=== PATIENT | female | born 1960 | race Caucasian/White ===

== ENCOUNTER → 2018-04-15 13:23 | Outpatient (CLI) | payer OTHER, SELFPAY | PROVIDERS: Family Provider Family Medicine; PCP Family Medicine; Visit Provider Family Medicine | DX: M81.0 Age-related osteoporosis without current pathological fracture (principal); Z78.0 Asymptomatic menopausal state | CPT/HCPCS: 77080 ==

== ENCOUNTER → 2018-06-04 07:49 | Outpatient (CLI) | payer OTHER, SELFPAY ==
[2018-06-04 08:57] LABS: Add Manual Diff / Slide Review NO; Basophils Percent Auto 1.1 % (0-2); Hemoglobin 13.2 g/dL (12.0-16.0); Lymphocytes Percent Auto 32.4 % (25-40); Mean Corpuscular HGB Conc 33.9 % (30-36); Mean Corpuscular Hemoglobin 32.1 PG (26-34); Mean Corpuscular Volume 94.8 fL (80-100); Monocytes Percent Auto 6.3 % (3-14); Neutrophils Absolute Auto 2800 /uL (1500-7000); Neutrophils Percent Auto 57.2 % (50-75); Platelet Count 302 X10^3/uL (150-400); Red Blood Cell Count 4.11 X10^6/uL (4.0-5.2); Red Cell Distribution Width 13.3 % (11.6-14.8); White Blood Cell Count 4.9 X10^3/uL (4.5-11.0)
[2018-06-04 09:03] LABS: Alanine Aminotransferase 30 IU/L (9-52); Albumin 4.5 g/dL (3.5-5.0); Albumin Globulin Ratio 1.5 (1.0-2.8); Alkaline Phosphatase 80 U/L (38-126); Aspartate Aminotransferase 22 IU/L (14-36); BUN Creatinine Ratio 22.9 (6-22); Bilirubin Total 0.5 mg/dL (0.2-1.3); Blood Urea Nitrogen 16 mg/dL (7-17); Calcium 9.3 mg/dL (8.4-10.2); Carbon Dioxide 26 mmol/L (22-32); Chloride 99 mmol/L (98-107); Cholesterol 210 mg/dL (140-199); Estimated Glomerular Filt Rate > 60.0 mL/min (>60); Glucose 95 mg/dL (70-100); HEMOLYSIS < 15 (0-50); Potassium 4.2 mmol/L (3.4-5.1); Sodium 136 mmol/L (137-145); Total Protein 7.5 g/dL (6.3-8.2); Triglycerides 70 mg/dL (35-150)
[2018-06-04 09:20] LABS: Vitamin D 25 Hydroxy (D3) 48.3 ng/mL (30.0-100.0)
[2018-06-04 09:30] LABS: HDL Cholesterol 131 mg/dL (40-60); LDL Cholesterol Calculated 65 mg/dL (<100)
[2018-06-04 09:34] LABS: Thyroid Stimulating Hormone 5.24 uIU/mL (0.47-4.68)
== END ==
PROVIDERS: PCP Family Medicine; Visit Provider Family Medicine
DX: B18.2 Chronic viral hepatitis C (principal); E78.5 Hyperlipidemia, unspecified; M81.0 Age-related osteoporosis without current pathological fracture; Z13.29 Encounter for screening for other suspected endocrine disorder
CPT/HCPCS: 36415; 80053; 80061; 82306; 84443; 85025

== ENCOUNTER → 2018-06-05 07:56 | Outpatient (CLI) | payer OTHER, SELFPAY ==
--- NOTE | 2018-06-05 07:57 | DI.MG.S_ITS ---
BILATERAL DIGITAL SCREENING MAMMOGRAM 3D/2D WITH CAD: 06/05/2018 CLINICAL: Routine screening. Comparison is made to exams dated: 09/05/2015 mammogram, 06/05/2009 mammogram, and 05/09/2008 mammogram - [facility]. The tissue of both breasts is heterogeneously dense. This may lower the sensitivity of mammography. Current study was also evaluated with a Computer Aided Detection (CAD) system. No significant masses, calcifications, or other findings are seen in either breast. Prominent blood vessels are identified bilaterally. There has been no significant interval change. IMPRESSION: NEGATIVE There is no mammographic evidence of malignancy. A 1 year screening mammogram is recommended. This exam was interpreted at Station ID: [id number]. NOTE: For mammograms, a report in lay terms will be sent to the patient. Approximately 15% of breast malignancies will not be visualized mammographically. In the management of a palpable breast mass, a negative mammogram must not discourage biopsy of a clinically suspicious lesion. Electronically Signed By: Dinesh Bartlett M.D. ecl/:06/07/2018 18:28:30 letter sent: Normal Exam ACR BI-RADS Category 1: Negative [id number]
== END ==
PROVIDERS: Family Provider Family Medicine; PCP Family Medicine; Visit Provider Family Medicine
DX: Z12.31 Encounter for screening mammogram for malignant neoplasm of breast (principal)
CPT/HCPCS: 77063; 77067

== ENCOUNTER → 2018-07-16 13:43 | Outpatient (CLI) | payer OTHER, SELFPAY ==
[2018-07-16 16:00] LABS: Thyroid Stimulating Hormone 3.56 uIU/mL (0.47-4.68)
== END ==
PROVIDERS: PCP Family Medicine; Visit Provider Family Medicine
DX: E03.9 Hypothyroidism, unspecified (principal)
CPT/HCPCS: 36415; 84443

== ENCOUNTER → 2019-01-18 11:24 | Outpatient (CLI) | payer OTHER, SELFPAY ==
[2019-01-18 12:50] LABS: Appearance Urine UA CLEAR; Bilirubin Urine UA NEGATIVE (NEGATIVE); Color Urine UA YELLOW; Glucose Urine UA NEGATIVE (Negative); Ketones Urine UA NEGATIVE (NEGATIVE); Leukocyte Esterase Urine UA 3+ (NEGATIVE); Nitrite Urine UA NEGATIVE (Negative); Occult Blood Urine UA 2+ (Negative); Protein Urine UA NEGATIVE (Negative); Urobilinogen Urine UA 0.2 E.U./dL (0.2)
[2019-01-18 12:56] LABS: RBC Urine 5-10/HPF (0-5/HPF)
[2019-01-18 12:57] LABS: Bacteria Urine Moderate (10-30); Culture Indicated Urine Specimen Cultured; Squamous Epithelial Cell Urine 1-5 /HPF (0-5/HPF); WBC Urine 5-10/HPF (0-5/HPF)
== END ==
PROVIDERS: Family Provider Family Medicine; PCP Family Medicine; Visit Provider Nurse Practitioner Family
DX: N39.0 Urinary tract infection, site not specified (principal); R30.0 Dysuria
CPT/HCPCS: 81001; 87077; 87086; 87186

== ENCOUNTER 2019-04-17 10:02 | Emergency (ER) | payer OTHER, SELFPAY ==
[2019-04-17 10:05] VITALS: BP 167/84; PULSE 92; RESP 21; TEMP 37.1; O2SAT 100; BMI 23.3
--- NOTE | 2019-04-17 10:29 | DI.RAD.S_ITS ---
PROCEDURE: XR CHEST 1V INDICATIONS: chest pain TECHNIQUE: One view of the chest was acquired. COMPARISON: [facility], , CHEST 2 VIEW, 08/17/2017, 3:25. FINDINGS: Surgical changes and devices: None. Lungs and pleura: Lungs are clear. No pleural effusions or pneumothorax. Mediastinum: Mediastinal contours appear normal. Heart size is normal. Bones and chest wall: No suspicious bony lesions. Overlying soft tissues appear unremarkable. IMPRESSION: Stable chest. No acute cardiopulmonary process is evident. Dictated by: Toribio Elam M.D. on 04/17/2019 at 10:07 Approved by: Toribio Elam M.D. on 04/17/2019 at 10:07
--- NOTE | 2019-04-17 10:32 | PC.NURSE ---
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
[2019-04-17 10:33] VITALS: BP 143/83; PULSE 85; RESP 18; O2SAT 100
[2019-04-17 10:37] LABS: Add Manual Diff / Slide Review NO; Basophils Absolute Auto 100 /uL (0-100); Basophils Percent Auto 1.3 % (0-2); Eosinophils Absolute Auto 200 /uL (0-450); Eosinophils Percent Auto 4.1 % (2-4); Hematocrit 38.2 % (36-46); Hemoglobin 13.3 g/dL (12.0-16.0); Lymphocytes Absolute Auto 1400 /uL (1100-4500); Lymphocytes Percent Auto 27.5 % (25-40); Mean Corpuscular HGB Conc 34.8 % (30-36); Mean Corpuscular Hemoglobin 32.7 PG (26-34); Mean Corpuscular Volume 94.2 fL (80-100); Monocytes Absolute Auto 400 /uL (0-900); Monocytes Percent Auto 7.8 % (3-14); Neutrophils Absolute Auto 3000 /uL (1500-7000); Neutrophils Percent Auto 59.3 % (50-75); Platelet Count 282 X10^3/uL (150-400); Red Blood Cell Count 4.06 X10^6/uL (4.0-5.2); Red Cell Distribution Width 13.5 % (11.6-14.8)
[2019-04-17 10:42] LABS: INR 0.9 (0.9-1.3); Prothrombin Time 10.5 SECONDS (10.1-12.7)
[2019-04-17 10:44] LABS: PTT Partial Thromboplastin Tim 30 SECONDS (26.4-36.2)
[2019-04-17 10:47] LABS: Alanine Aminotransferase 35 IU/L (<35); Albumin 4.6 g/dL (3.5-5.0); Albumin Globulin Ratio 1.6 (1.0-2.8); Alkaline Phosphatase 77 U/L (38-126); Aspartate Aminotransferase 35 IU/L (14-36); BUN Creatinine Ratio 22.9 (6-22); Bilirubin Total 0.5 mg/dL (0.2-1.3); Blood Urea Nitrogen 16 mg/dL (7-17); Calcium 9.5 mg/dL (8.4-10.2); Carbon Dioxide 29 mmol/L (22-32); Chloride 95 mmol/L (98-107); Creatine Kinase 125 U/L (30-135); Estimated Glomerular Filt Rate > 60.0 mL/min (>60); Globulin 2.9 g/dL (1.7-4.1); Glucose 95 mg/dL (80-110); HEMOLYSIS < 15 (0-50); Lipase 63 U/L (23-300); Potassium 4.3 mmol/L (3.4-5.1); Sodium 133 mmol/L (137-145); Total Protein 7.5 g/dL (6.3-8.2)
[2019-04-17 10:58] LABS: Troponin I < 0.012 ng/mL (0.01-0.034)
[2019-04-17 11:02] LABS: CKMB % Relative Index 2.2 % (1.5-5.0)
[2019-04-17 11:10] VITALS: BP 168/83; PULSE 76; RESP 14
[2019-04-17 11:30] VITALS: BP 157/95; PULSE 73; RESP 16; O2SAT 97
[2019-04-17 12:00] VITALS: BP 157/95; PULSE 72; RESP 16; O2SAT 96
--- NOTE | 2019-04-17 12:05 | ED.ARRPALP ---
HPI - Arrhythmia/Palpitations General Chief Complaint: Arrhythmia/Palpitations Stated Complaint: Palpitations,irregular hr Time Seen by Provider: 04/17/19 10:27 Source: patient Mode of arrival: Ambulatory Limitations: no limitations History of Present Illness HPI narrative: Patient comes emergency department complaining palpitations since starting Norvasc a couple days ago. 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 She states that she got lightheaded felt almost though she would faint, but did not have any chest pain or shortness of breath. She states another nurse at work took her pulse and found that it was irregular. 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 Patient states that the episode resolved in a few minutes on its own, and that since then she has had on and off sensation of a fluttery feeling in her upper chest. Patient denies any nausea or vomiting. She states that prior to starting the [facility], she had never had any symptoms like this. She has no known cardiac issues, and has taken over idea medications over the years for hypertension. Most recently, before the [facility], she was on couple of different Napoleon inhibitors, these have given her the side effect of a cough, and so her primary care physician, Dr. Turpin, had switched her to the [facility] to try to alleviate this. Patient states she has been off the Napoleon inhibitors for a couple of days now and is still coughing, but was told that the cough could last for up to a month. Patient denies any fevers or chills. The cough is not productive of any sputum. Patient denies any other complaints at this time. She states that with the episodes of fluttering, she did not feel lightheaded. Related Data Home Medications Medication Instructions Recorded Confirmed Strontium PO DAILY 01/18/19 04/14/19 acetaminophen 500 mg tablet 1,000 mg PO Q6H PRN 01/18/19 04/14/19 agelCAL PO BID 01/18/19 04/14/19 ibuprofen 200 mg tablet 800 mg PO QID PRN tab 01/18/19 04/14/19 Previous Rx's Medication Instructions Recorded montelukast 10 mg tablet 10 mg PO QDAY #90 tab 06/17/18 estradiol [Estrace] 1 gm VAGINAL SEE INSTRUCTIONS #1 07/09/18 tube ipratropium-albuterol [Combivent 120 puff INH BID #1 inh 07/09/18 Respimat] beclomethasone dipropionate [Qvar] 0.08 mg IH BID #1 ea 12/27/18 albuterol sulfate 90 mcg/actuation See Rx Instructions INHALATION 01/14/19 aerosol inhaler Q4-6H #1 each alprazolam 1 mg tablet 1 mg PO .hs PRN #45 tab 02/28/19 tramadol 50 mg tablet 50 mg PO Q8H PRN #60 tab 03/07/19 trazodone 50 mg tablet See Rx Instructions PO BEDTIME PRN 03/10/19 #180 tab eletriptan 40 mg tablet 40 mg PO SEE INSTRUCTIONS #12 tab 04/07/19 losartan 25 mg tablet 25 mg PO DAILY #90 tab 04/18/19 Allergies Allergy/AdvReac Type Severity Reaction Status Date / Time resveratrol [RESVERATROL] Allergy Severe HIVES AND Verified 04/17/19 10:17 SWELLING, RED WINE Sulfa (Sulfonamide Allergy Intermediate Verified 04/17/19 10:17 Antibiotics) [SULFA (SULFONAMIDE ANTIBIOTICS)] hydrochlorothiazide AdvReac Mild PALPITATION Verified 04/17/19 10:17 [HYDROCHLOROTHIAZIDE] S Review of Systems Review of Systems ROS Unobtainable: All systems reviewed & are unremarkable except as noted in HPI and below Constitutional Constitutional: Denies chills, Denies fatigue, Denies fever(s), Denies frequent falls, Denies lethargy and Denies weakness Eyes Eyes: Denies change in vision, Denies eye discharge, Denies irritation and Denies loss of vision ENT Ears, Nose, Mouth, and Throat: Denies change in voice, Denies dizziness, Denies neck pain, Denies sore throat and Denies throat swelling Cardiovascular Cardiovascular: Denies chest pain, Denies irregular heart rhythm, Denies lightheadedness, Denies palpitations, Denies dyspnea, Denies dyspnea on exertion and Denies orthopnea Respiratory Respiratory: Denies cough, Denies dyspnea, Denies dyspnea on exertion and Denies wheezing Gastrointestinal Gastrointestinal: Denies abdominal pain, Denies change in bowel habits, Denies diarrhea, Denies nausea and Denies vomiting Genitourinary Genitourinary: Denies hematuria, Denies flank pain, Denies urinary incontinence and Denies urinary urgency Musculoskeletal Musculoskeletal: Denies back pain, Denies muscle weakness, Denies neck pain, Denies numbness and Denies tingling Integumentary/Breasts Skin/Breast: Denies pruritus, Denies erythema, Denies rash and Denies wounds Neurologic Neurologic: Denies behavioral changes, Denies confusion, Denies dizziness, Denies frequent falls, Denies loss of vision, Denies numbness, Denies tingling and Denies weakness Psychiatric Psychiatric: Denies anxiety, Denies behavioral changes, Denies confusion, Denies depression, Denies homicidal ideation and Denies suicidal ideation Endocrine Endocrine: Denies fatigue, Denies flushing and Denies palpitations Hematologic/Lymphatic Hematologic/Lymphatic: Denies easy bruising Allergic/Immunologic Allergic/Immunologic: Denies urticaria, Denies throat swelling and Denies wheezing Patient History Medical History Asthma (Chronic 1968) Cervical spine disease (Chronic 1995) Fibromyalgia (Chronic 2012) Gastroparesis (Chronic 1999) Hepatitis C (Chronic 1995) Hypertension (Chronic 2001) Insomnia (Chronic 2011) Migraines (Chronic 1999) MRSA infection (Resolved 2009) Osteoporosis (Chronic 11/2015) Stress fracture of foot (Resolved 11/2015) Surgical History Anesthesia complication (Resolved) History of dilation and curettage (Resolved) Status post delivery (Resolved 1982) Status post delivery (Resolved 1984) Status post delivery (Resolved 1988) Status post delivery (Resolved 1991) Status post delivery (Resolved 1995) Family History Brother Age: 61 Hypertension Brother Age: 55 Hypertension Brother Age: 53 Hypertension Brother Age: 50 Hypertension Father Heart disease ID (myocardial infarction) Grandfather Stroke Grandmother Stroke Mother No problems noted. Grandfather AAA (abdominal aortic aneurysm) Grandmother No problems noted. Sister No problems noted. Family/Other Choking episode Social History Smoking Status: Never smoker Substance Use Type: does not use Exam Initial Vital Signs Initial Vital Signs: Vital Signs Temperature 98.7 F 04/17/19 10:05 Pulse Rate 92 H 04/17/19 10:05 Respiratory Rate 21 04/17/19 10:05 Blood Pressure 167/84 H 04/17/19 10:05 Pulse Oximetry 100 04/17/19 10:05 Const General: cooperative and well developed Nutritional Appearance: well nourished Orientation: alert, awake, oriented x3 and not confused HENMT Head: normocephalic and atraumatic Ears: external ears normal Nose: external nose normal and No nasal discharge Face and sinus: face symmetric and No dry mucous membranes Mouth: oral mucosae normal and moist mucous membranes Teeth and gingiva: dentition normal Eyes General: appearance normal, both eyes and all related structures Eyelids: eyelids normal Conjunctivae: conjunctivae normal Sclera: sclerae normal Pupils: PERRL EOM: EOM intact bilaterally Neck Neck: normal visual inspection, trachea midline, No lymphadenopathy, No midline deformity and No JVD Lymphatic: No lymphedema Chest Chest: normal inspection of the chest Resp Effort & Inspection: normal respiratory effort, able to speak in complete sentences, no respiratory distress and no use of accessory muscles Auscultation: clear to auscultation bilaterally, no rales, no rhonchi and no wheezes Cardio Rate: regular rate Rhythm: regular rhythm Heart Sounds: no click, no gallops, no murmurs and no rubs Pulses: normal peripheral pulses GI Inspection: non-distended Palpation: soft, no hepatosplenomegaly, No guarding, No pulsatile mass and No tender Back/Spine/Pelvis Back: No CVA tenderness Cervical Spine: cervical ROM normal and No pain with cervical ROM Thoracic/Lumbar Spine: thoracic and lumbar spine normal to inspection Skin General: no rashes or lesions noted, No jaundice and No petechiae Neuro General: alert, oriented x3, gait normal and no focal motor deficits Speech: speech normal Extrem General: full ROM, no clubbing, cyanosis or edema, no pedal edema and no calf tenderness Psych Appearance: well kempt Mental Status: mental status grossly normal Attitude: cooperative Thought Content: normal and suicidality Judgment: judgment good Course Course Course Narrative: Patient was worked up in the emergency department labs, EKG, and chest x-ray, all which were found to be unremarkable. Her monitor reading did not show any ectopy or other dysrhythmia whatsoever. I discussed with the patient that most likely, she will need to follow up with her doctor to get set up with an event monitor, should she continue to have symptoms. The patient states that at this time, she is determined to go off of the Norvasc and back on to her Napoleon inhibitors, as she feels that the Norvasc is what has started all this. She states she will take the night off work tonight an call her doctor to set up a follow-up appointment. Orders Ordered: ED Orders 04/17/19 10:13 EKG-12 Lead Stat 04/17/19 10:20 Complete Blood Count AUTO DIFF Stat Comprehensive Metabolic Panel Stat Lipase Stat Partial Thromboplastin Time Stat Prothrombin Time INR Stat Troponin & CK Cardiac Panel Stat 04/17/19 10:29 XR chest 1V Stat Vital Signs Vital signs: Vital Signs - 8 hr 04/17/19 10:05 04/17/19 10:33 04/17/19 11:10 Temperature 98.7 F Pulse Rate 92 H 85 76 Respiratory Rate 21 18 14 Blood Pressure 167/84 H Blood Pressure [Right Arm] 143/83 H 168/83 H Pulse Oximetry 100 100 04/17/19 11:30 04/17/19 12:00 Temperature Pulse Rate 73 72 Respiratory Rate 16 16 Blood Pressure Blood Pressure [Right Arm] 157/95 H 157/95 H Pulse Oximetry 97 96 MDM - Arrhythmia/Palpitations Medical Records Attestation: I reviewed the patient's medical records. Lab Data Attestation: I reviewed the patient's lab results. Result diagrams: 04/17/19 10:20 04/17/19 10:20 Labs: Lab Results 04/17/19 04/17/19 04/17/19 Range/Units 10:20 10:20 10:20 WBC 5.0 (4.5-11.0) X10^3/uL RBC 4.06 (4.0-5.2) X10^6/uL Hgb 13.3 (12.0-16.0) g/dL Hct 38.2 (36-46) % MCV 94.2 (80-100) fL MCH 32.7 (26-34) PG MCHC 34.8 (30-36) % RDW 13.5 (11.6-14.8) % Plt Count 282 (150-400) X10^3/uL Neut % (Auto) 59.3 (50-75) % Lymph % (Auto) 27.5 (25-40) % [place] % (Auto) 7.8 (3-14) % Eos % (Auto) 4.1 H (2-4) % Baso % (Auto) 1.3 (0-2) % Neut # (Auto) 3000 (0221-4458) /uL Lymph # (Auto) 1400 (9537-0731) /uL [place] # (Auto) 400 (0-900) /uL Eos # (Auto) 200 (0-450) /uL Baso # (Auto) 100 (0-100) /uL PT 10.5 (10.1-12.7) SECONDS INR 0.9 (0.9-1.3) APTT 30 (26.4-36.2) SECONDS Sodium 133 L (137-145) mmol/L Potassium 4.3 (3.4-5.1) mmol/L Chloride 95 L (98-107) mmol/L Carbon Dioxide 29 (22-32) mmol/L BUN 16 (7-17) mg/dL Creatinine 0.70 (0.52-1.04) mg/dL Estimated GFR > 60.0 (>60) mL/min BUN/Creatinine Ratio 22.9 H (6-22) Glucose 95 (80-110) mg/dL Calcium 9.5 (8.4-10.2) mg/dL Total Bilirubin 0.5 (0.2-1.3) mg/dL AST 35 (14-36) IU/L ALT 35 H (<35) IU/L Alkaline Phosphatase 77 (38-126) U/L Total Creatine Kinase 125 (30-135) U/L CK-MB (CK-2) 2.80 H (<2.37) ng/mL CK-MB (CK-2) Rel Index 2.2 (1.5-5.0) % Troponin I < 0.012 (0.01-0.034) ng/mL Total Protein 7.5 (6.3-8.2) g/dL Albumin 4.6 (3.5-5.0) g/dL Globulin 2.9 (1.7-4.1) g/dL Albumin/Globulin Ratio 1.6 (1.0-2.8) Lipase 63 (23-300) U/L Imaging Data Chest x-ray: Radiologist's impression: PROCEDURE: XR CHEST 1V INDICATIONS: chest pain TECHNIQUE: One view of the chest was acquired. COMPARISON: [facility], , CHEST 2 VIEW, 08/17/2017, 3:25. FINDINGS: Surgical changes and devices: None. Lungs and pleura: Lungs are clear. No pleural effusions or pneumothorax. Mediastinum: Mediastinal contours appear normal. Heart size is normal. Bones and chest wall: No suspicious bony lesions. Overlying soft tissues appear unremarkable. IMPRESSION: Stable chest. No acute cardiopulmonary process is evident. Dictated by: Toribio Elam M.D. on 04/17/2019 at 10:07 Approved by: Toribio Elam M.D. on 04/17/2019 at 10:07 ECG Data Attestation: I personally reviewed and interpreted this ECG as follows: Discharge Plan Departure Patient Disposition: Home Clinical Impression: Palpitations Discharge Date/Time: 04/17/19 12:00 Instructions: DI for Palpitations Activity Restrictions/Additional Instructions: Your labs look good. Your sodium is slightly decreased at 133, but the rest of your electrolytes look great. Your blood counts are normal. Your EKG shows normal sinus rhythm here in the emergency department, and your monitor rhythm has been sinus, as well, with a normal rate. You may go to work if you feel well enough, but if you have another episode of the palpitations, please consider at least brief monitoring at work. If you feel that the Norvasc is responsible for your symptoms, then it is probably better for you to go back on your NAPOLEON-inhibitor and decide with your doctor what would be a good alternative for treatment of your blood pressure. Please call Dr. Turpin's office 1st thing tomorrow morning to make an appointment to follow up to discuss your meds and event monitoring. If you are unable to get an appointment for within 1 week, please contact the emergency department tomorrow, and we will help facilitate this for you. Drink plenty of fluids and avoid stimulants, including caffeine, decongestants, and energy drinks, as much as possible. Prescriptions: No Action montelukast 10 mg tablet 10 mg PO QDAY Qty: 90 RF: 3 estradiol [Estrace] 0.01 % (0.1 mg/gram) cream 1 gm Vaginal SEE INSTRUCTIONS Qty: 1 RF: 6 ipratropium-albuterol [Combivent Respimat] 20-100 mcg/actuation mist 120 puff INH BID Qty: 1 RF: 4 Qvar 80 mcg/actuation aerosol 0.08 mg IH BID Qty: 1 RF: 2 Ventolin HFA 90 mcg/actuation HFA aerosol inhaler See Rx Instructions INHALATION Q4-6H Qty: 1 RF: 2 alprazolam 1 mg tablet 1 mg PO .hs PRN (Reason: anxiety) Qty: 45 RF: 2 tramadol 50 mg tablet 50 mg PO Q8H PRN (Reason: pain) Qty: 60 RF: 1 trazodone 50 mg tablet See Rx Instructions PO BEDTIME PRN (Reason: insomnia) Qty: 180 RF: 0 eletriptan [Relpax] 40 mg tablet 40 mg PO SEE INSTRUCTIONS Qty: 12 RF: 3 losartan 25 mg tablet 25 mg PO DAILY Qty: 90 RF: 0 agelCAL PO BID RF: 0 Strontium PO DAILY RF: 0 acetaminophen [Tylenol Extra Strength] 500 mg tablet 1,000 mg PO Q6H PRNRF: 0 ibuprofen 200 mg tablet 800 mg PO QID PRNRF: 0 Referrals: Juan Antonio Turpin MD [Primary Care Provider] -
== END 2019-04-17 12:00 | disposition home or self-care (01) ==
PROVIDERS: Emergency Provider Emergency Medicine; PCP Family Medicine
DX: R00.2 Palpitations (principal); R07.9 Chest pain, unspecified
CPT/HCPCS: 36415; 71045; 80053; 82550; 82553; 83690; 84484; 85025; 85610; 85730; 93005; 93010; 99283; 99285

== ENCOUNTER → 2019-06-23 14:42 | Outpatient (CLI) | payer OTHER, SELFPAY ==
--- NOTE | 2019-06-23 14:43 | DI.RAD.S_ITS ---
PROCEDURE: XR FOOT RT MIN 3V INDICATIONS: Toe pain TECHNIQUE: 3 views of the foot were acquired. COMPARISON: [facility], , FOOT 3V RIGHT, 11/02/2015, 9:14. FINDINGS: Bones: Mildly displaced oblique fracture extending through the mid shaft of the fourth proximal phalanx which has a subacute appearance.. Soft tissues: No tibiotalar joint effusion. Achilles tendon appears normal. IMPRESSION: Subacute appearing fracture involving the midshaft of the fourth proximal phalanx. Dictated by: Maury Espinoza LOCATED [facility]IN [facility] Interpreted: Katherine Pena MD on 06/23/2019 at 17:05 Approved by: Katherine Pena M.D. on 06/23/2019 at 17:30
== END ==
PROVIDERS: PCP Family Medicine; Visit Provider Family Medicine
DX: M79.674 Pain in right toe(s) (principal); S92.511A Displaced fracture of proximal phalanx of right lesser toe(s), initial encounter for closed fracture; X58.XXXA Exposure to other specified factors, initial encounter
CPT/HCPCS: 73630

== ENCOUNTER → 2019-07-01 12:24 | Outpatient (CLI) | payer OTHER, SELFPAY ==
--- NOTE | 2019-07-01 | DI.MG.S_ITS ---
BILATERAL DIGITAL SCREENING MAMMOGRAM 3D/2D WITH CAD: 07/01/2019 CLINICAL: Routine screening. Comparison is made to exams dated: 06/05/2018 mammogram, 09/05/2015 mammogram, and 06/05/2009 mammogram - [facility]. The tissue of both breasts is heterogeneously dense. This may lower the sensitivity of mammography. Current study was also evaluated with a Computer Aided Detection (CAD) system. No significant masses, calcifications, or other findings are seen in either breast. There has been no significant interval change. IMPRESSION: NEGATIVE There is no mammographic evidence of malignancy. A 1 year screening mammogram is recommended. This exam was interpreted at Station ID: [id number]. NOTE: For mammograms, a report in lay terms will be sent to the patient. Approximately 15% of breast malignancies will not be visualized mammographically. In the management of a palpable breast mass, a negative mammogram must not discourage biopsy of a clinically suspicious lesion. Electronically Signed By: Tam kline/alicja:07/01/2019 16:15:33 letter sent: Normal Exam ACR BI-RADS Category 1: Negative [id number]
== END ==
PROVIDERS: PCP Family Medicine; Visit Provider Family Medicine
DX: Z12.31 Encounter for screening mammogram for malignant neoplasm of breast (principal); M81.0 Age-related osteoporosis without current pathological fracture; Z78.0 Asymptomatic menopausal state
CPT/HCPCS: 77063; 77067; 77080

== ENCOUNTER → 2019-12-02 08:44 | Outpatient (CLI) | payer OTHER, SELFPAY ==
[2019-12-02 11:00] LABS: Alanine Aminotransferase 33 IU/L (<35); Albumin 4.3 g/dL (3.5-5.0); Albumin Globulin Ratio 1.6 (1.0-2.8); Alkaline Phosphatase 80 U/L (38-126); Aspartate Aminotransferase 28 IU/L (14-36); BUN Creatinine Ratio 17.1 (6-22); Bilirubin Total 0.7 mg/dL (0.2-1.3); Blood Urea Nitrogen 13 mg/dL (7-17); Calcium 9.6 mg/dL (8.4-10.2); Carbon Dioxide 29 mmol/L (22-32); Chloride 99 mmol/L (98-107); Cholesterol 221 mg/dL (140-199); Estimated Glomerular Filt Rate > 60.0 mL/min (>60); Globulin 2.7 g/dL (1.7-4.1); Glucose 94 mg/dL (80-110); HEMOLYSIS < 15 (0-50); Potassium 4.6 mmol/L (3.4-5.1); Sodium 132 mmol/L (137-145); Triglycerides 81 mg/dL (35-150)
[2019-12-02 11:12] LABS: HDL Cholesterol 123 mg/dL (40-60); LDL Cholesterol Calculated 82 mg/dL (<100)
== END ==
PROVIDERS: PCP Family Medicine; Referring Provider Family Medicine; Visit Provider Family Medicine
DX: I10 Essential (primary) hypertension (principal)
CPT/HCPCS: 36415; 80053; 80061

== ENCOUNTER → 2019-12-08 14:49 | Outpatient (CLI) | payer OTHER, SELFPAY ==
[2019-12-09 13:09] LABS: COVID19 Sendout Not Detected (Not Detected)
== END ==
PROVIDERS: PCP Family Medicine; Visit Provider Physician Assistant
DX: R50.9 Fever, unspecified (principal)
CPT/HCPCS: 87635

== ENCOUNTER → 2020-05-17 10:33 | Outpatient (CLI) | payer OTHER, SELFPAY ==
[2020-05-17 11:26] LABS: BUN Creatinine Ratio 28.3 (6-22); Blood Urea Nitrogen 17 mg/dL (7-17); Calcium 9.5 mg/dL (8.4-10.2); Carbon Dioxide 33 mmol/L (22-32); Chloride 89 mmol/L (98-107); Estimated Glomerular Filt Rate > 60.0 mL/min (>60); Glucose 88 mg/dL (80-110); HEMOLYSIS < 15 (0-50); Potassium 3.9 mmol/L (3.4-5.1); Sodium 125 mmol/L (137-145)
== END ==
PROVIDERS: PCP Family Medicine; Referring Provider Family Medicine; Visit Provider Family Medicine
DX: I10 Essential (primary) hypertension (principal)
CPT/HCPCS: 80048

== ENCOUNTER → 2020-06-11 11:18 | Outpatient (CLI) | payer OTHER, SELFPAY ==
[2020-06-11 13:03] LABS: BUN Creatinine Ratio 16.4 (6-22); Blood Urea Nitrogen 12 mg/dL (7-17); Calcium 9.6 mg/dL (8.4-10.2); Carbon Dioxide 30 mmol/L (22-32); Chloride 98 mmol/L (98-107); Estimated Glomerular Filt Rate > 60.0 mL/min (>60); Glucose 107 mg/dL (80-110); HEMOLYSIS < 15 (0-50); Potassium 4.1 mmol/L (3.4-5.1); Sodium 131 mmol/L (137-145)
== END ==
PROVIDERS: PCP Family Medicine; Referring Provider Family Medicine; Visit Provider Family Medicine
DX: I10 Essential (primary) hypertension (principal)
CPT/HCPCS: 36415; 80048

== ENCOUNTER 2020-06-18 13:48 | Emergency (ER) | payer OTHER, SELFPAY ==
[2020-06-18 13:52] VITALS: BP 167/82; PULSE 84; RESP 16; TEMP 36.2; O2SAT 98
--- NOTE | 2020-06-18 13:57 | DI.RAD.S_ITS ---
PROCEDURE: XR SHOULDER LT MIN 2V INDICATIONS: fall w/ bilateral rib pain and left shoulder pain TECHNIQUE: 3 views of the shoulder were acquired. COMPARISON: None. FINDINGS: Bones: No fractures or dislocations. No suspicious bony lesions. Visualized ribs appear intact. Mild degenerative change appreciated. Soft tissues: No suspicious soft tissue calcifications. IMPRESSION: No left shoulder fracture or dislocation. Dictated by: Paul Lo M.D. on 06/18/2020 at 13:22 Approved by: Paul Lo M.D. on 06/18/2020 at 13:24
--- NOTE | 2020-06-18 13:57 | DI.RAD.S_ITS ---
PROCEDURE: XR RIBS BI MIN 4V W CXR1V INDICATIONS: fall w/ bilateral rib pain and left shoulder pain TECHNIQUE: 2 views of the bilateral ribs were acquired, along with a single view chest. COMPARISON: [facility], CR, XR SHOULDER LT MIN 2V, 06/18/2020, 14:07. [facility], CR, XR CHEST 1V, 04/17/2019, 10:32. FINDINGS: Surgical changes and devices: None. Bones and chest wall: A marker is placed upon the area of clinical concern on both sides. Within this region, no displaced rib fracture or other significant rib abnormality can be seen. No rib fractures are seen elsewhere. No suspicious bony lesions. Overlying soft tissues appear unremarkable. Age-appropriate bony degenerative changes are seen. Mild dextroconvex scoliotic curvature is seen. Lungs and pleura: No pleural effusions or pneumothorax. Lungs appear clear. Mediastinum: Mediastinal contours appear normal. Heart size is normal. A moderate hiatal hernia is seen, with an air-fluid level. IMPRESSION: No displaced rib fractures can be seen. No pneumothorax. Hiatal hernia noted. Dictated by: Heber Calzada M.D. on 06/18/2020 at 13:29 Approved by: Heber Calzada M.D. on 06/18/2020 at 13:31
[2020-06-18 16:48] VITALS: BP 139/77; PULSE 71; RESP 16; O2SAT 99
--- NOTE | 2020-06-18 17:17 | ED.FALL ---
HPI - Fall General Chief Complaint: Fall Stated Complaint: FELL DOWN STAIRS, PROBLEMS BREATHING Time Seen by Provider: 06/18/20 17:17 Source: patient and family () Mode of arrival: Ambulatory Limitations: no limitations History of Present Illness HPI Narrative: This is a 59-year-old female who comes to the emergency department after a fall down the stairs. Patient states that she was going down the stairs when her foot sort of slipped forward and she fell landing on her back and buttocks. Patient states she sort of bumped down the stairs she states since then she has had some pain in her chest on both sides, some left shoulder pain and had difficulty taking a deep breath. She denies having her head she denies any neck pain. She denies any numbness, tingling or weakness. No loss of consciousness. She does not take any aspirin or other blood thinners. She took tramadol and ibuprofen at home which was helpful. She states she also had a Valium which she has taken which was helpful for muscle relaxation. This occurred 2-3 days prior to arrival. She has not had any new neurologic changes. Patient has become more uncomfortable as time has progressed. She does not feel short of breath she has not had any vomiting. No loss of bowel or bladder control. She states she does have a bruise on her buttock. Related Data Home Medications Medication Instructions Recorded Confirmed Strontium PO DAILY 01/18/19 05/21/20 acetaminophen 500 mg tablet 1,000 mg PO Q6H PRN 01/18/19 05/21/20 agelCAL PO BID 01/18/19 05/21/20 ibuprofen 200 mg tablet 800 mg PO QID PRN tab 01/18/19 05/21/20 Previous Rx's Medication Instructions Recorded montelukast 10 mg tablet 10 mg PO QDAY #90 tab 06/25/19 estradiol 1 gram VAGINAL SEE INSTRUCTIONS #1 11/11/19 tube losartan 50 mg tablet 50 mg PO BID #180 tab 01/19/20 fluconazole 150 mg tablet 150 mg PO Q3D #6 tab 04/23/20 nystatin 100,000 unit/mL oral 5 ml PO TID 5 Days #75 ml 04/23/20 suspension alprazolam 1 mg tablet 0.5 mg PO BEDTIME PRN #60 tab 05/15/20 eletriptan 40 mg tablet See Rx Instructions .ROUTE 05/15/20 .COMPLEX #12 tab tramadol 50 mg tablet See Rx Instructions .ROUTE 05/15/20 .COMPLEX #60 tablet albuterol sulfate 90 mcg/actuation 2 puff INHALATION Q6H PRN #6.7 g 05/21/20 aerosol inhaler budesonide 180 mcg/actuation 2 inh INHALATION BID #1 ea 05/21/20 breath activated powder inhaler clotrimazole-betamethasone 1 1 applic TOPICAL BID 14 Days #45 g 05/21/20 %-0.05 % topical cream trazodone 50 mg tablet See Rx Instructions PO BEDTIME PRN 05/21/20 #90 tab diazepam [Valium] 5 mg PO TID PRN #10 tab 06/18/20 Allergies Allergy/AdvReac Type Severity Reaction Status Date / Time resveratrol [RESVERATROL] Allergy Severe HIVES AND Verified 06/18/20 13:57 SWELLING, RED WINE Sulfa (Sulfonamide Allergy Intermediate Verified 06/18/20 13:57 Antibiotics) [SULFA (SULFONAMIDE ANTIBIOTICS)] thimerosal Allergy Unknown Verified 06/18/20 13:57 amlodipine Allergy heart Verified 06/18/20 13:57 palpitations enalapril AdvReac cough Verified 06/18/20 13:57 Review of Systems Review of Systems ROS Unobtainable: All systems reviewed & are unremarkable except as noted in HPI and below Patient History Medical History Asthma (1968) Cervical spine disease (1995) Fibromyalgia (2012) Gastroparesis (1999) Hepatitis C (1995) Hypertension (2001) Insomnia (2011) Migraines (1999) MRSA infection (2009) Osteoporosis (11/2015) Stress fracture of foot (11/2015) Surgical History Anesthesia complication History of dilation and curettage Status post delivery (1982) Status post delivery (1984) Status post delivery (1988) Status post delivery (1991) Status post delivery (1995) Family History Brother Age: 62 Hypertension Brother Age: 56 Hypertension Brother Age: 54 Hypertension Brother Age: 51 Hypertension Father Heart disease NE (myocardial infarction) Grandfather Stroke Grandmother Stroke Mother No problems noted. Grandfather AAA (abdominal aortic aneurysm) Grandmother No problems noted. Sister No problems noted. Family/Other Choking episode Social History Smoking Status: Never smoker Smoking Status: Never smoker alcohol intake frequency: 0-2 drinks per day Substance Use Type: does not use Exam Narrative Exam Narrative: GEN: Patient appears in mild distress. HEAD: No evidence of trauma, no raccoon/Salazar sign. NECK: Nontender, painless range of motion, trachea midline Negative for Nexus criteria, there is no mid line tenderness, distracting injury, altered mental status, neuro deficit, recent EtOH. EYES: PERRLA, EOMI ENT: External inspection normal, trachea is midline, TM's are normal no hemotypanum, Nares are clear, no septal hematoma, no dental or oral injury, airway is normal and with normal occlusion, No bony tenderness RESP: Chest has mild tenderness bilaterally and has symmetric movement, no ecchymosis, breath sounds are normal no crackles, wheezes or rales, no flail chest, no accessory muscle use. CVS: Heart sounds are normal, no murmur noted, No JVD. ABG/GI: Nontender, soft, normal bowel sounds, no distention, no organomegaly, pelvic rock is negative NEURO: Oriented AOx3, neuro is grossly intact, sensation and motor is normal all 4 extremities moving, cranial nerves II through XII are intact, GCS is 15 PSYCH: Normal mood and affect SKIN: Intact, warm and dry, no crepitus and without decubitus patient has a of ecchymosis that is approximately a cm in size on her left buttock. No hematoma appreciated. BACK: No CVA tenderness, no vertebral tenderness, no step-off's, no crepitus. Patient does have some muscle tightness in the neck. EXT: Atraumatic, patient does have tenderness of the left shoulder particularly the AC joint. No warmth, no erythema. She does have some decreased range of motion with abduction, none with adduction, patient has decreased flexion/extension. Hips are nontender, no pedal edema, normal color and temperature, normal range of motion of extremities with normal tendon exam, 2+ pulses in all four extremities Initial Vital Signs Initial Vital Signs: Vital Signs Temperature 97.2 F L 06/18/20 13:52 Pulse Rate 84 06/18/20 13:52 Respiratory Rate 16 06/18/20 13:52 Blood Pressure 167/82 H 06/18/20 13:52 Pulse Oximetry 98 06/18/20 13:52 Scores GCS [place] coma scale eye opening: Spontaneous [place] coma scale verbal response: Orientated [place] coma scale motor response: Obey commands David coma scale total score: 15 Course Orders Ordered: ED Orders 06/18/20 13:57 XR ribs BI min 4V w CXR1V Stat XR shoulder LT min 2V Stat Vital Signs Vital signs: Vital Signs - 8 hr 06/18/20 13:52 06/18/20 16:48 Temperature 97.2 F L Pulse Rate 84 71 Respiratory Rate 16 16 Blood Pressure 167/82 H 139/77 Pulse Oximetry 98 99 MDM - Fall Imaging Data Chest x-ray: Radiologist's Impression: [address] [id number] ReportSigned Patient: Bertha Clarke MMR#: [id number]: [id number]:[id number]/Sex: 59 / FDate of Service: 06/18/20Loc: EDAccession Number: [id number] Procedure: XR ribs BI min 4V w CXR1V Ordering Provider: Carol Berger D.O. PROCEDURE: XR RIBS BI MIN 4V W CXR1V INDICATIONS: fall w/ bilateral rib pain and left shoulder pain TECHNIQUE: 2 views of the bilateral ribs were acquired, along with a single view chest. COMPARISON: [facility], CR, XR SHOULDER LT MIN 2V, 06/18/2020, 14:07. [facility], CR, XR CHEST 1V, 04/17/2019, 10:32. FINDINGS: Surgical changes and devices: None. Bones and chest wall: A marker is placed upon the area of clinical concern on both sides. Within this region, no displaced rib fracture or other significant rib abnormality can be seen. No rib fractures are seen elsewhere. No suspicious bony lesions. Overlying soft tissues appear unremarkable. Age-appropriate bony degenerative changes are seen. Mild dextroconvex scoliotic curvature is seen. Lungs and pleura: No pleural effusions or pneumothorax. Lungs appear clear. Mediastinum: Mediastinal contours appear normal. Heart size is normal. A moderate hiatal hernia is seen, with an air-fluid level. IMPRESSION: No displaced rib fractures can be seen. No pneumothorax. Hiatal hernia noted. Dictated by: Heber Calzada M.D. on 06/18/2020 at 13:29 Approved by: Heber Calzada M.D. on 06/18/2020 at 13:31 Extremity x-ray #1: Radiologist's Impression: [address] [id number] ReportSigned Patient: Bertha Clarke MMR#: [id number]: [id number]:[id number]/Sex: 59 / FDate of Service: 06/18/20Loc: EDAccession Number: [id number] Procedure: XR shoulder LT min 2V Ordering Provider: Carol Berger D.O. PROCEDURE: XR SHOULDER LT MIN 2V INDICATIONS: fall w/ bilateral rib pain and left shoulder pain TECHNIQUE: 3 views of the shoulder were acquired. COMPARISON: None. FINDINGS: Bones: No fractures or dislocations. No suspicious bony lesions. Visualized ribs appear intact. Mild degenerative change appreciated. Soft tissues: No suspicious soft tissue calcifications. IMPRESSION: No left shoulder fracture or dislocation. Dictated by: Paul Lo M.D. on 06/18/2020 at 13:22 Approved by: Paul Lo M.D. on 06/18/2020 at 13:24 [facility] Narrative Medical decision making narrative: Patient comes in with complaint of fall down the stairs. Patient is requesting prescription for diazepam. She states that her home medications were helpful for pain but she feels very tight with her muscles. X-ray imaging does not show any acute rib fractures. Patient does not have specific point tenderness it makes me suspect she has a rib fracture at this time. She does potentially have some injury to her shoulder. There is no fracture noted on imaging but she does have some difficulty with full flexion and abduction. Patient has follow-up on with her primary care physician was recommended discussed with them as she may need some further evaluation. Recommended short-term pain control and time to see if her symptoms improve. We did discuss that there was potential for some internal derangement. Discharge Plan Departure Patient Disposition: Home Clinical Impression: Back pain, Left shoulder pain, Fall Activity Restrictions/Additional Instructions: Follow-up with Dr. Sotomayor at your appointment on . Discussed your discomfort particularly your left shoulder today. Continue your home medications as prescribed for pain. You may also take Valium tablet every 8 hours as needed for muscle relaxation. This medication can make you sleepy do not drive, perform hazardous activities or make any major decisions while taking it. Prescription to [facility] in [place]. Return to the ER for fevers, lightheadedness or passing out, severe headaches, new weakness, numbness or loss of sensation in your extremities, loss of bowel or bladder control, new shortness of breath, worsening chest pain, persistent vomiting or other new or concerning symptoms. Prescriptions: New diazepam [Valium] 5 mg tablet 5 mg PO TID PRN (Reason: muscle spasm) Qty: 10 RF: 0 No Action nystatin 100,000 unit/mL suspension 5 ml PO TID 5 Days Qty: 75 RF: 1 fluconazole 150 mg tablet 150 mg PO Q3D Qty: 6 RF: 0 eletriptan 40 mg tablet See Rx Instructions .ROUTE .COMPLEX Qty: 12 RF: 2 tramadol 50 mg tablet See Rx Instructions .ROUTE .COMPLEX Qty: 60 RF: 3 alprazolam 1 mg tablet 0.5 mg PO BEDTIME PRN (Reason: insomnia) Qty: 60 RF: 2 agelCAL PO BID RF: 0 Strontium PO DAILY RF: 0 acetaminophen [Tylenol Extra Strength] 500 mg tablet 1,000 mg PO Q6H PRNRF: 0 ibuprofen 200 mg tablet 800 mg PO QID PRNRF: 0 estradiol [Estrace] 0.01 % (0.1 mg/gram) cream 1 gram Vaginal SEE INSTRUCTIONS Qty: 1 RF: 6 albuterol sulfate 90 mcg/actuation HFA aerosol inhaler 2 puff inhalation Q6H PRN (Reason: shortness of breath or wheezing) Qty: 6.7 RF: 8 Pulmicort Flexhaler 180 mcg/actuation aerosol powdr breath activated 2 inh inhalation BID Qty: 1 RF: 8 trazodone 50 mg tablet See Rx Instructions PO BEDTIME PRN (Reason: insomnia) Qty: 90 RF: 8 clotrimazole-betamethasone 1-0.05 % cream 1 applic topical BID 14 Days Qty: 45 RF: 3 montelukast 10 mg tablet 10 mg PO QDAY Qty: 90 RF: 3 losartan 50 mg tablet 50 mg PO BID Qty: 180 RF: 3 Referrals: Eladio Sotomayor MD [Primary Care Provider] - Stand Alone Forms: Work Release Note
== END 2020-06-18 17:53 | disposition home or self-care (01) ==
PROVIDERS: Emergency Provider Emergency Medicine; PCP Internal Medicine
DX: M54.9 Dorsalgia, unspecified (principal); R07.9 Chest pain, unspecified; M25.512 Pain in left shoulder; R07.81 Pleurodynia; W10.9XXA Fall (on) (from) unspecified stairs and steps, initial encounter
CPT/HCPCS: 71111; 73030; 99283; 99284

== ENCOUNTER → 2020-06-26 17:40 | Outpatient (CLI) | payer OTHER, SELFPAY ==
--- NOTE | 2020-06-26 17:42 | DI.MRI.S_ITS ---
PROCEDURE: MR SHOULDER LT WO CON INDICATIONS: left shoulder injury/weakness TECHNIQUE: Noncontrast oblique coronal T2 fast spin echo with fat saturation, oblique sagittal T1 spin echo and T2 fast spin echo with fat saturation, axial T1 spin echo and T2 fast spin echo with fat saturation through the shoulder. COMPARISON: [facility], CR, XR SHOULDER LT MIN 2V, 06/18/2020, 14:07. FINDINGS: Image quality: Excellent. Rotator cuff: There is mild T2 signal elevation within the anterior, mid, and posterior supraspinatus, as well as the anterior and mid infraspinatus tendons at the humeral insertion sites, indicating tendinopathy. There is superimposed moderate grade intrasubstance tearing of the anterior infraspinatus and posterior supraspinatus tendons at the humeral insertion sites. There is high-grade tearing of the anterior supraspinatus tendon at the humeral insertion site. Subscapularis and teres minor tendons are intact. No rotator cuff atrophy. Bones and bursae: No bone marrow contusions or fractures. Subchondral cysts within the mid posterior labrum. Moderate acromioclavicular joint degeneration. The acromion demonstrates conventional anatomy, without an os acromiale. A small amount of subacromial-subdeltoid or subcoracoid bursal fluid is present. Capsule and soft tissues: High T2 signal intensity traverses the posterior labrum. The long head of the biceps tendon demonstrates normal location and morphology. The rotator interval appears normal, without fibrosis. The coracohumeral ligament is normal in thickness. IMPRESSION: 1. Supraspinatus and infraspinatus tendinopathy with superimposed high-grade tearing of the anterior supraspinatus, and moderate grade tearing of the posterior supraspinatus/anterior infraspinatus. No full-thickness rotator cuff tear. 2. Acromioclavicular joint osteoarthritis. 3. Subacromial bursitis. 4. Findings suggestive of posterior labral tearing. Dictated by: Rizwana Bee M.D. on 06/27/2020 at 9:09 Approved by: Rizwana Bee M.D. on 06/27/2020 at 9:14
== END ==
PROVIDERS: PCP Registered Nurse; Referring Provider Registered Nurse; Visit Provider Registered Nurse
DX: S46.012A Strain of muscle(s) and tendon(s) of the rotator cuff of left shoulder, initial encounter; M75.52 Bursitis of left shoulder; M19.012 Primary osteoarthritis, left shoulder; R29.898 Other symptoms and signs involving the musculoskeletal system; X58.XXXA Exposure to other specified factors, initial encounter
CPT/HCPCS: 73221

== ENCOUNTER → 2020-12-03 08:48 | Outpatient (CLI) | payer OTHER, SELFPAY ==
[2020-12-03 09:54] LABS: Add Manual Diff / Slide Review NO; Basophils Absolute Auto 0 /uL (0-100); Basophils Percent Auto 1.5 % (0-2); Eosinophils Absolute Auto 100 /uL (0-450); Eosinophils Percent Auto 1.8 % (2-4); Hematocrit 31.4 % (36-46); Hemoglobin 10.3 g/dL (12.0-16.0); Lymphocytes Absolute Auto 900 /uL (1100-4500); Lymphocytes Percent Auto 29.4 % (25-40); Mean Corpuscular HGB Conc 32.7 % (30-36); Mean Corpuscular Hemoglobin 27.3 PG (26-34); Mean Corpuscular Volume 83.5 fL (80-100); Monocytes Absolute Auto 300 /uL (0-900); Monocytes Percent Auto 9.3 % (3-14); Neutrophils Absolute Auto 1800 /uL (1500-7000); Platelet Count 354 X10^3/uL (150-400); Red Blood Cell Count 3.76 X10^6/uL (4.0-5.2); Red Cell Distribution Width 19.3 % (11.6-14.8); White Blood Cell Count 3.2 X10^3/uL (4.5-11.0)
[2020-12-03 10:06] LABS: Alanine Aminotransferase 26 IU/L (<35); Albumin Globulin Ratio 1.6 (1.0-2.8); Alkaline Phosphatase 66 U/L (38-126); Aspartate Aminotransferase 22 IU/L (14-36); BUN Creatinine Ratio 14.5 (6-22); Bilirubin Total 0.1 mg/dL (0.2-1.3); Blood Urea Nitrogen 10 mg/dL (7-17); Calcium 9.4 mg/dL (8.4-10.2); Carbon Dioxide 27 mmol/L (22-32); Chloride 94 mmol/L (98-107); Estimated Glomerular Filt Rate > 60.0 mL/min (>60); Globulin 2.5 g/dL (1.7-4.1); Glucose 105 mg/dL (80-110); HEMOLYSIS < 15 (0-50); Potassium 4.3 mmol/L (3.4-5.1); Sodium 128 mmol/L (137-145); Total Protein 6.5 g/dL (6.3-8.2)
[2020-12-03 10:42] LABS: Ferritin 65 ng/mL (11-264)
== END ==
PROVIDERS: PCP Family Medicine; Referring Provider Family Medicine; Visit Provider Family Medicine
DX: D64.9 Anemia, unspecified (principal)
CPT/HCPCS: 36415; 80053; 82728; 85025

== ENCOUNTER → 2020-12-25 09:21 | Outpatient (CLI) | payer OTHER, SELFPAY ==
[2020-12-25 10:28] LABS: Add Manual Diff / Slide Review NO; Basophils Absolute Auto 0 /uL (0-100); Basophils Percent Auto 1.3 % (0-2); Eosinophils Absolute Auto 200 /uL (0-450); Eosinophils Percent Auto 4.4 % (2-4); Hematocrit 36.4 % (36-46); Hemoglobin 11.9 g/dL (12.0-16.0); Lymphocytes Absolute Auto 1400 /uL (1100-4500); Lymphocytes Percent Auto 39.8 % (25-40); Mean Corpuscular HGB Conc 32.7 % (30-36); Mean Corpuscular Hemoglobin 27.7 PG (26-34); Mean Corpuscular Volume 84.9 fL (80-100); Monocytes Absolute Auto 400 /uL (0-900); Monocytes Percent Auto 10.9 % (3-14); Neutrophils Absolute Auto 1500 /uL (1500-7000); Neutrophils Percent Auto 43.6 % (50-75); Platelet Count 277 X10^3/uL (150-400); Red Blood Cell Count 4.28 X10^6/uL (4.0-5.2); Red Cell Distribution Width 21.9 % (11.6-14.8); White Blood Cell Count 3.5 X10^3/uL (4.5-11.0)
[2020-12-25 10:33] LABS: BUN Creatinine Ratio 20.3 (6-22); Blood Urea Nitrogen 14 mg/dL (7-17); Calcium 9.6 mg/dL (8.4-10.2); Carbon Dioxide 29 mmol/L (22-32); Chloride 96 mmol/L (98-107); Estimated Glomerular Filt Rate > 60.0 mL/min (>60); Glucose 86 mg/dL (80-110); HEMOLYSIS < 15 (0-50); Potassium 4.4 mmol/L (3.4-5.1); Sodium 130 mmol/L (137-145)
[2020-12-25 10:51] LABS: Anisocytosis 2+; Hypochromasia 1+
== END ==
PROVIDERS: PCP Family Medicine; Referring Provider Family Medicine; Visit Provider Family Medicine
DX: D64.9 Anemia, unspecified (principal); E87.1 Hypo-osmolality and hyponatremia
CPT/HCPCS: 36415; 80048; 85025

== ENCOUNTER → 2021-02-05 10:04 | Outpatient (CLI) | payer OTHER, SELFPAY ==
[2021-02-05 11:28] LABS: Basophils Absolute Auto 0 /uL (0-100); Basophils Percent Auto 1.2 % (0-2); Eosinophils Absolute Auto 200 /uL (0-450); Eosinophils Percent Auto 5.2 % (2-4); Hematocrit 37.6 % (36-46); Hemoglobin 12.5 g/dL (12.0-16.0); Lymphocytes Absolute Auto 1500 /uL (1100-4500); Lymphocytes Percent Auto 38.1 % (25-40); Mean Corpuscular HGB Conc 33.1 % (30-36); Mean Corpuscular Hemoglobin 28.8 PG (26-34); Mean Corpuscular Volume 86.8 fL (80-100); Monocytes Absolute Auto 300 /uL (0-900); Monocytes Percent Auto 8.5 % (3-14); Neutrophils Absolute Auto 1800 /uL (1500-7000); Platelet Count 244 X10^3/uL (150-400); Red Blood Cell Count 4.33 X10^6/uL (4.0-5.2); Red Cell Distribution Width 19.2 % (11.6-14.8); White Blood Cell Count 3.9 X10^3/uL (4.5-11.0)
[2021-02-05 11:35] LABS: Add Manual Diff / Slide Review SLIDE REVIEW
[2021-02-05 11:52] LABS: Anisocytosis 1+
== END ==
PROVIDERS: PCP Family Medicine; Referring Provider Family Medicine; Visit Provider Family Medicine
DX: D64.9 Anemia, unspecified (principal); K20.90 Esophagitis, unspecified without bleeding
CPT/HCPCS: 36415; 85025

== ENCOUNTER → 2021-02-28 07:47 | Outpatient (CLI) | payer OTHER, SELFPAY ==
--- NOTE | 2021-02-28 07:48 | DI.ECHO.S_ITS ---
[facility] +---------+ : : [address] [place] : : : : [id number] : : : : Phone: [phone]+ Echocardiogram Report + + :Name: MELISSA CANDELARIO Study Date: 02/28/2021 Height: 64 in : [facility] ReadingLocation: Weight: 149 lb : : Gender: Female BSA: 1.7 m2 : :: 1960 Age: 60 yrs BP: 151/93 mmHg: :Reason For Study: Dyspnea : :Ordering Physician: LESLEY, : :SANDRA Performed By: Leland Roberson : :Referring: SANDRA SUTTON : + + Interpretation Summary The left ventricle is normal in size. The ejection fraction is estimated to be 55-60%. The right ventricle is normal in size and function. No significant valvular pathology seen. The IVC is of normal diameter and collapses greater than 50% with a sniff. This suggests a low right atrial pressure of 3 mm Hg. Procedure: A two-dimensional transthoracic echocardiogram with color flow and Doppler was performed. The study quality was technically adequate. There is no prior echocardiogram noted for this patient. The patient was in sinus rhythm with heart rates between 62-74 bpm during the exam. Left Ventricle: The left ventricle is normal in size. Proximal septal thickening is noted. There is no echo evidence for significant left ventricular outflow tract obstruction. There is no thrombus. Left ventricular systolic function is normal. The ejection fraction is estimated to be 55-60%. There are no focal wall motion abnormalities. MV E/A: 1.3 Med Peak E' Win: 7.4 cm/sec E/E' med: 10.1. Right Ventricle: The right ventricle is normal in size and function. Atria: Both atria are normal in size. There is no Doppler evidence for an interatrial shunt. Mitral Valve: The mitral valve is normal in structure and function. There is trace mitral regurgitation. Aortic Valve: The aortic valve is trileaflet. The aortic valve opens well. There is discrete nodular thickening of the non- coronary cusp. There is no aortic valve stenosis. No aortic regurgitation is present. Tricuspid Valve: The tricuspid valve is normal in structure and function. Pulmonary artery pressures cannot be estimated because of the lack of a measurable TR jet velocity but the IVC suggests a CVP of around 3 mmHg. There is trace tricuspid regurgitation. Pulmonic Valve: The pulmonic valve is not well seen, but is grossly normal. There is trace pulmonic regurgitation. Great Vessels: The aortic root is normal size. The dimensions of the ascending aorta are normal. The IVC is of normal diameter and collapses greater than 50% with a sniff. This suggests a low right atrial pressure of 3 mm Hg. Pericardium/ Pleura There is no pericardial effusion. There is no pleural effusion. MMode/2D Measurements & Calculations LVIDd: 4.6 cm LVOT diam: 2.1 cm LVIDs: 3.2 cm Ao root diam: 2.9 cm FS: 30.4 % asc Aorta Diam: 3.1 cm IVSd: 0.80 cm LVPWd: 0.80 cm LV alva. diameter/BSA (cm/m^2): 2.7 LV sys. diameter/BSA (cm/m^2): 1.9 LA dimension: 2.8 cm RA long axis: 4.4 cm LA A2 area: 15.4 cm2 LA A4 area: 13.0 cm2 LA length (vol): 5.0 cm LA vol: 33.9 ml LA vol index: 19.7 ml/m2 TAPSE_phl: 1.8 cm Doppler Measurements & Calculations Ao V2 max: 123.0 cm/sec LVOT Max Win: 133.0 cm/sec Ao V2 mean: 94.1 cm/sec LV V1 max P.1 mmHg Ao max P.0 mmHg LV V1 VTI: 27.5 cm Ao mean P.0 mmHg ANA(I,D): 3.5 cm2 Ao V2 VTI: 27.0 cm ANA(V,D): 3.7 cm2 sev ratio: 1.0 ANA indexed to BSA (cm^2/m^2): 2.0 MV E max win: 74.1 cm/sec PA V2 max: 119.0 cm/sec MV A max win: 57.8 cm/sec PA V2 mean: 86.3 cm/sec MV E/A: 1.3 PA mean P.0 mmHg Med Peak E' Win: 7.4 cm/sec PA pr(Accel): 39.8 mmHg E/E' med: 10.1 Lat Peak E' Win: 13.1 cm/sec E/E' lat: 5.7 E/e' average: 7.9 MV dec time: 0.24 sec SV(LVOT): 95.2 ml AV VR_phl: 1.1 ANA(VTI)/BSA_phl: 2.0 MV P1/2t-pr_phl: 69.0 msec Reading Physician:01:39 PM
== END ==
PROVIDERS: PCP Family Medicine; Referring Provider Family Medicine; Visit Provider Family Medicine
DX: R60.0 Localized edema (principal); R06.00 Dyspnea, unspecified; I37.1 Nonrheumatic pulmonary valve insufficiency
CPT/HCPCS: 93306

== ENCOUNTER → 2021-03-27 09:18 | Outpatient (CLI) | payer OTHER, SELFPAY ==
[2021-03-27 10:02] LABS: Add Manual Diff / Slide Review NO; Basophils Absolute Auto 100 /uL (0-100); Basophils Percent Auto 1.3 % (0-2); Eosinophils Absolute Auto 100 /uL (0-450); Eosinophils Percent Auto 2.5 % (2-4); Hematocrit 37.2 % (36-46); Hemoglobin 12.6 g/dL (12.0-16.0); Lymphocytes Absolute Auto 1200 /uL (1100-4500); Lymphocytes Percent Auto 26.9 % (25-40); Mean Corpuscular HGB Conc 33.8 % (30-36); Mean Corpuscular Hemoglobin 31.4 PG (26-34); Mean Corpuscular Volume 92.7 fL (80-100); Monocytes Absolute Auto 300 /uL (0-900); Monocytes Percent Auto 5.9 % (3-14); Neutrophils Absolute Auto 2800 /uL (1500-7000); Neutrophils Percent Auto 63.4 % (50-75); Platelet Count 290 X10^3/uL (150-400); Red Blood Cell Count 4.01 X10^6/uL (4.0-5.2); Red Cell Distribution Width 13.5 % (11.6-14.8); White Blood Cell Count 4.5 X10^3/uL (4.5-11.0)
[2021-03-27 10:25] LABS: NT-proBNP (BNP-Adult 18+) 142 pg/mL (<125)
== END ==
PROVIDERS: PCP Family Medicine; Referring Provider Family Medicine; Visit Provider Family Medicine
DX: D64.9 Anemia, unspecified (principal); K20.90 Esophagitis, unspecified without bleeding; R60.0 Localized edema
CPT/HCPCS: 36415; 83880; 85025

== ENCOUNTER → 2021-07-26 15:11 | Outpatient (CLI) | payer OTHER, SELFPAY ==
[2021-07-26 15:39] LABS: Add Manual Diff / Slide Review NO; Basophils Absolute Auto 100 /uL (0-100); Basophils Percent Auto 1.2 % (0-2); Eosinophils Absolute Auto 100 /uL (0-450); Eosinophils Percent Auto 1.6 % (2-4); Hematocrit 37.3 % (36-46); Hemoglobin 12.8 g/dL (12.0-16.0); Lymphocytes Absolute Auto 1600 /uL (1100-4500); Lymphocytes Percent Auto 29.5 % (25-40); Mean Corpuscular HGB Conc 34.4 % (30-36); Mean Corpuscular Hemoglobin 31.5 PG (26-34); Mean Corpuscular Volume 91.6 fL (80-100); Monocytes Absolute Auto 400 /uL (0-900); Monocytes Percent Auto 6.9 % (3-14); Neutrophils Absolute Auto 3200 /uL (1500-7000); Neutrophils Percent Auto 60.8 % (50-75); Platelet Count 278 X10^3/uL (150-400); Red Blood Cell Count 4.07 X10^6/uL (4.0-5.2); Red Cell Distribution Width 13.2 % (11.6-14.8); White Blood Cell Count 5.3 X10^3/uL (4.5-11.0)
[2021-07-26 16:09] LABS: Alanine Aminotransferase 30 IU/L (<35); Albumin 4.4 g/dL (3.5-5.0); Albumin Globulin Ratio 1.3 (1.0-2.8); Alkaline Phosphatase 70 U/L (38-126); Aspartate Aminotransferase 27 IU/L (14-36); BUN Creatinine Ratio 14.7 (6-22); Bilirubin Total 0.5 mg/dL (0.2-1.3); Blood Urea Nitrogen 10 mg/dL (7-17); Calcium 9.5 mg/dL (8.4-10.2); Carbon Dioxide 32 mmol/L (22-32); Chloride 98 mmol/L (98-107); Estimated Glomerular Filt Rate > 60.0 mL/min (>60); Globulin 3.4 g/dL (1.7-4.1); Glucose 67 mg/dL (80-110); HEMOLYSIS < 15 (0-50); Potassium 4.3 mmol/L (3.4-5.1); Sodium 133 mmol/L (137-145); Total Protein 7.8 g/dL (6.3-8.2)
== END ==
PROVIDERS: PCP Family Medicine; Referring Provider Family Medicine; Visit Provider Family Medicine
DX: D50.0 Iron deficiency anemia secondary to blood loss (chronic) (principal); I10 Essential (primary) hypertension
CPT/HCPCS: 36415; 80053; 85025

== ENCOUNTER → 2021-12-12 07:50 | Outpatient (CLI) | payer OTHER, SELFPAY ==
[2021-12-12 09:16] LABS: Add Manual Diff / Slide Review NO; Basophils Absolute Auto 0 /uL (0-100); Basophils Percent Auto 1.3 % (0-2); Eosinophils Absolute Auto 100 /uL (0-450); Eosinophils Percent Auto 3.5 % (2-4); Hematocrit 34.9 % (36-46); Hemoglobin 12.6 g/dL (12.0-16.0); Lymphocytes Absolute Auto 1700 /uL (1100-4500); Lymphocytes Percent Auto 49.8 % (25-40); Mean Corpuscular Hemoglobin 32.1 PG (26-34); Mean Corpuscular Volume 89.2 fL (80-100); Monocytes Absolute Auto 300 /uL (0-900); Monocytes Percent Auto 9.5 % (3-14); Neutrophils Absolute Auto 1200 /uL (1500-7000); Neutrophils Percent Auto 35.9 % (50-75); Platelet Count 255 X10^3/uL (150-400); Red Blood Cell Count 3.91 X10^6/uL (4.0-5.2); Red Cell Distribution Width 13.2 % (11.6-14.8); White Blood Cell Count 3.3 X10^3/uL (4.5-11.0)
[2021-12-12 09:41] LABS: Alanine Aminotransferase 35 IU/L (<35); Albumin 4.3 g/dL (3.5-5.0); Albumin Globulin Ratio 1.6 (1.0-2.8); Alkaline Phosphatase 76 U/L (38-126); Aspartate Aminotransferase 29 IU/L (14-36); Bilirubin Total 0.5 mg/dL (0.2-1.3); Blood Urea Nitrogen 9 mg/dL (7-17); Calcium 9.1 mg/dL (8.4-10.2); Carbon Dioxide 30 mmol/L (22-32); Chloride 93 mmol/L (98-107); Cholesterol 176 mg/dL (140-199); Estimated Glomerular Filt Rate > 60 mL/min (>60); Globulin 2.7 g/dL (1.7-4.1); Glucose 88 mg/dL (80-110); HDL Cholesterol 70 mg/dL (40-60); HEMOLYSIS < 15 (0-50); LDL Cholesterol Calculated 91 mg/dL (<100); Potassium 3.9 mmol/L (3.4-5.1); Sodium 129 mmol/L (137-145); Triglycerides 75 mg/dL (35-150)
[2021-12-12 17:03] LABS: Hep C Virus Ab w/Reflex Quant REACTIVE s/c (NEGATIVE)
== END ==
PROVIDERS: PCP Family Medicine; Referring Provider Family Medicine; Visit Provider Family Medicine
DX: D50.0 Iron deficiency anemia secondary to blood loss (chronic) (principal); I10 Essential (primary) hypertension; R60.0 Localized edema
CPT/HCPCS: 36415; 80053; 80061; 85025; 86803; 87522

== ENCOUNTER → 2022-02-12 16:24 | Outpatient (CLI) | payer OTHER, SELFPAY ==
--- NOTE | 2022-02-12 16:26 | DI.RAD.S_ITS ---
PROCEDURE: XR HAND LT MIN 3V INDICATIONS: bilateral hand pain TECHNIQUE: 3 views of the hand(s) acquired. COMPARISON: None. FINDINGS: Bones: No fractures or dislocations. Carpal bones are normally aligned. No suspicious bony lesions. Degenerative changes of the 1st carpometacarpal joint with joint space narrowing and subchondral sclerosis. No erosions or evidence of inflammatory arthropathy. Soft tissues: No suspicious soft tissue calcifications. IMPRESSION: 1. Degenerative changes of the 1st carpometacarpal joint consistent with osteoarthritis. 2. No significant degenerative changes in the hand. 3. No radiographic evidence of inflammatory arthropathy. Dictated by: Abdullahi Wang M.D. on 02/12/2022 at 17:42 Approved by: Abdullahi Wang M.D. on 02/12/2022 at 17:43
--- NOTE | 2022-02-12 16:26 | DI.RAD.S_ITS ---
PROCEDURE: XR HAND RT MIN 3V INDICATIONS: bilateral hand pain TECHNIQUE: 3 views of the hand(s) acquired. COMPARISON: [facility], CR, XR HAND LT MIN 3V, 02/12/2022, 16:30. FINDINGS: Bones: No fractures or dislocations. Carpal bones are normally aligned. No suspicious bony lesions. No erosions or evidence of inflammatory arthropathy. Soft tissues: No suspicious soft tissue calcifications. IMPRESSION: 1. No significant degenerative changes. 2. No radiographic evidence of inflammatory arthropathy. Dictated by: Abdullahi Wang M.D. on 02/12/2022 at 17:44 Approved by: Abdullahi Wang M.D. on 02/12/2022 at 17:44
[2022-02-12 18:19] LABS: Erythrocyte Sedimentation Rate 8 MM/HR (0-20)
[2022-02-12 18:29] LABS: Alanine Aminotransferase 64 IU/L (<35); Albumin 4.1 g/dL (3.5-5.0); Albumin Globulin Ratio 1.3 (1.0-2.8); Alkaline Phosphatase 90 U/L (38-126); Aspartate Aminotransferase 35 IU/L (14-36); BUN Creatinine Ratio 16.2 (6-22); Bilirubin Total 0.4 mg/dL (0.2-1.3); Blood Urea Nitrogen 12 mg/dL (7-17); C-Reactive Protein Quant 0.7 mg/dL (<1.0); Carbon Dioxide 30 mmol/L (22-32); Chloride 96 mmol/L (98-107); Estimated Glomerular Filt Rate > 60 mL/min (>60); Globulin 3.2 g/dL (1.7-4.1); Glucose 74 mg/dL (80-110); HEMOLYSIS < 15 (0-50); Potassium 3.9 mmol/L (3.4-5.1); Sodium 130 mmol/L (137-145); Total Protein 7.3 g/dL (6.3-8.2)
[2022-02-12 18:34] LABS: Rheumatoid Factor < 8.6 IU/mL (<12.0)
[2022-02-14 13:12] LABS: ANA Screen, IFA Negative (.)
== END ==
PROVIDERS: PCP Family Medicine; Referring Provider Family Medicine; Visit Provider Family Medicine
DX: M79.641 Pain in right hand (principal); M79.642 Pain in left hand; M79.89 Other specified soft tissue disorders
CPT/HCPCS: 36415; 73130; 80053; 85651; 86038; 86140; 86430

== ENCOUNTER → 2022-04-24 11:36 | Outpatient (CLI) | payer OTHER, SELFPAY ==
--- NOTE | 2022-04-24 11:37 | DI.MG.S_ITS ---
BILATERAL DIGITAL SCREENING MAMMOGRAM 3D/2D WITH CAD: 04/24/2022 CLINICAL: Routine screening. Comparison is made to exams dated: 07/01/2019 mammogram, 06/05/2018 mammogram, and 09/05/2015 mammogram - [facility]. There are scattered areas of fibroglandular density in both breasts (category b / 25%-50% glandular tissue). Current study was also evaluated with a Computer Aided Detection (CAD) system. No significant masses, calcifications, or other findings are seen in either breast. There has been no significant interval change. IMPRESSION: NEGATIVE There is no mammographic evidence of malignancy. A 1 year screening mammogram is recommended. Based on the Tyrer Cuzick model (a risk assessment model) the patient's lifetime risk is 5.6% and her 10 year risk is 2.5%. According to the ACR, ACS, and NCCN guidelines, an annual breast MRI exam along with mammogram is recommended if the patient's lifetime risk is 20% or greater. This exam was interpreted at Station ID: [id number]. NOTE: For mammograms, a report in lay terms will be sent to the patient. Approximately 15% of breast malignancies will not be visualized mammographically. In the management of a palpable breast mass, a negative mammogram must not discourage biopsy of a clinically suspicious lesion. Electronically Signed By: Cynthia low/alicja:04/24/2022 18:03:18 letter sent: Normal Exam ACR BI-RADS Category 1: Negative 3341F
== END ==
PROVIDERS: PCP Family Medicine; Referring Provider Family Medicine; Visit Provider Family Medicine
DX: Z12.31 Encounter for screening mammogram for malignant neoplasm of breast (principal)
CPT/HCPCS: 77063; 77067

== ENCOUNTER → 2023-06-12 16:07 | Outpatient (CLI) | payer OTHER, SELFPAY ==
--- NOTE | 2023-06-12 | DI.MG.S_ITS ---
BILATERAL DIGITAL SCREENING MAMMOGRAM 3D/2D WITH CAD: 06/12/2023 CLINICAL: Routine screening. Comparison is made to exams dated: 04/24/2022 mammogram, 07/01/2019 mammogram, and 06/05/2018 mammogram - [facility]. There are scattered areas of fibroglandular density in both breasts (category b / 25%-50% glandular tissue). Current study was also evaluated with a Computer Aided Detection (CAD) system. No significant masses, calcifications, or other findings are seen in either breast. There has been no significant interval change. IMPRESSION: NEGATIVE There is no mammographic evidence of malignancy. A 1 year screening mammogram is recommended. Based on the Tyrer Cuzick model (a risk assessment model) the patient's lifetime risk is 5.4% and her 10 year risk is 2.5%. According to the ACR, ACS, and NCCN guidelines, an annual breast MRI exam along with mammogram is recommended if the patient's lifetime risk is 20% or greater. This exam was interpreted at Station ID: [id number]. NOTE: For mammograms, a report in lay terms will be sent to the patient. Approximately 15% of breast malignancies will not be visualized mammographically. In the management of a palpable breast mass, a negative mammogram must not discourage biopsy of a clinically suspicious lesion. Electronically Signed By: Cynthia low/alicja:06/16/2023 09:51:31 letter sent: Normal Exam ACR BI-RADS Category 1: Negative [id number]
== END ==
LOC: MAMMO 16:08
PROVIDERS: PCP Family Medicine; Referring Provider Family Medicine; Visit Provider Family Medicine
DX: Z12.31 Encounter for screening mammogram for malignant neoplasm of breast (principal)
CPT/HCPCS: 77063; 77067

== ENCOUNTER → 2023-10-20 09:39 | Outpatient (CLI) | payer MEDICARE, SELFPAY ==
--- NOTE | 2023-10-20 09:42 | DI.RAD.S_ITS ---
PROCEDURE: XR DEXA AXIAL SKELETON INDICATIONS: Osetoporosis COMPARISON: [facility], CR, XR DEXA AXIAL SKELETON, 04/15/2018, 14:37. [facility], CR, DEXA AXIAL SKELETON, 12/04/2015, 11:01. [facility], CR, XR DEXA AXIAL SKELETON, 07/01/2019, 13:01. FINDINGS: Lumbar Spine: Bone mineral density 0.878 g/cm2, T score -1.5, osteopenia. Left Hip: Bone mineral density 0.862 g/cm2, T score -0.7, normal. Left Femoral Neck: Bone mineral density 0.659 g/cm2, T score -1.7, osteopenia. Right Hip: Bone mineral density 0. 890 g/cm2, T score -0.4, normal. Right Femoral Neck: Bone mineral density 0.724 g/cm2, T score -1.1, osteopenia. Fracture Risk Calculation (when applicable): Not provided because of on treatment for osteoporosis. (T score greater or equal to -1.0 to: NORMAL) (T score from -1.1 to -2.4: OSTEOPENIA) (T score less than or equal to -2.5: OSTEOPOROSIS) IMPRESSION: 1. Based on WHO criteria, the patient has osteopenia. 2. Compared to the last exam, the patient's bone mineral density in lumbar spine has increased by 9.7%. The patient's bone mineral density in left hip has increased by 10.3% and in right hip has increased by 15.5%. Statistical analysis of bone mineral density change cannot be performed because of dissimilar scanning type. Follow-up guidelines as follows: Osteoporosis: Consider a repeat DEXA and Vertebral Fracture Assessment (VFA) exam in 2 years or sooner if medically necessary, to reassess this patient's status. Osteopenia: Consider a repeat DEXA in 2-3 years to reassess this patient's status, or if there is a new clinical indication. Normal: Consider a repeat DEXA in 5 years or sooner, or if there is a new clinical indication. Dictated by: Delaney Richardson M.D. on 10/20/2023 at 10:12 Approved by: Delaney Richardson M.D. on 10/20/2023 at 10:21
== END ==
PROVIDERS: PCP Family Medicine; Referring Provider Family Medicine; Visit Provider Family Medicine
DX: M81.0 Age-related osteoporosis without current pathological fracture (principal); M85.80 Other specified disorders of bone density and structure, unspecified site
CPT/HCPCS: 77080

== ENCOUNTER → 2023-11-03 15:02 | Outpatient (CLI) | payer MEDICARE, SELFPAY | PROVIDERS: PCP Family Medicine; Referring Provider Internal Medicine Critical Care Medicine; Visit Provider Internal Medicine Critical Care Medicine | DX: J45.909 Unspecified asthma, uncomplicated (principal) | CPT/HCPCS: 36415; 82785; 86003 ==

== ENCOUNTER → 2023-11-12 09:45 | Outpatient (CLI) | payer MEDICARE, SELFPAY | PROVIDERS: PCP Family Medicine; Referring Provider Internal Medicine Critical Care Medicine; Visit Provider Internal Medicine Critical Care Medicine | DX: J45.909 Unspecified asthma, uncomplicated (principal); R94.2 Abnormal results of pulmonary function studies | CPT/HCPCS: 94010; 94726; 94729 ==

== ENCOUNTER 2023-12-28 16:43 | Emergency (ER) | payer MEDICARE, SELFPAY ==
[2023-12-28 16:46] VITALS: BP 167/90; PULSE 82; RESP 18; TEMP 36.6; O2SAT 100; BMI 27.4
--- NOTE | 2023-12-28 16:49 | DI.RAD.S_ITS ---
PROCEDURE: XR KNEE LT 3V INDICATIONS: pain TECHNIQUE: 3 views of the knee were acquired. COMPARISON: None. FINDINGS: Bones: No fractures or dislocations. No suspicious bony lesions. Soft tissues: No joint effusion. No suspicious soft tissue calcifications. IMPRESSION: No acute bony abnormality or significant effusion. If there are persistent symptoms or clinical suspicion for pathology, then repeat radiographs or advanced imaging (CT or MRI) may be considered for further evaluation. Dictated by: Daniel Cadena M.D. on 12/28/2023 at 17:03 Approved by: Daniel Cadena M.D. on 12/28/2023 at 17:04
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
--- NOTE | 2023-12-28 17:26 | DI.US.S_ITS ---
PROCEDURE: US PERIPH VENOUS LOW EXTREM LT INDICATIONS: eval for DVT TECHNIQUE: Real-time imaging, as well as color and pulse Doppler interrogation, were performed of the lower extremity deep veins from the inguinal ligament to the popliteal fossa, with documentation of the visualized calf veins. COMPARISON: None. FINDINGS: The common femoral, femoral, popliteal, and the visualized calf veins are normally compressible, and free of intraluminal thrombus. Color and pulse Doppler demonstrate normal phasic intraluminal flow. There is normal augmentation response to distal compression maneuver. There is a 4.2 x 1.2 x 4.1 cm cystic lesion in the left popliteal fossa likely representing a Yu cyst. IMPRESSION: No findings of lower extremity deep venous thrombosis. Dictated by: Daniel Cadena M.D. on 12/28/2023 at 18:49 Approved by: Daniel Cadena M.D. on 12/28/2023 at 18:50
[2023-12-28 18:03] VITALS: PULSE 78; O2SAT 95
[2023-12-28 18:04] VITALS: BP 144/76; PULSE 75; O2SAT 95
[2023-12-28 18:30] VITALS: BP 117/72; PULSE 69; O2SAT 95
[2023-12-28 19:20] VITALS: BP 127/74; PULSE 70; RESP 14; O2SAT 97
== END 2023-12-28 19:21 | disposition home or self-care (01) ==
PROVIDERS: Emergency Provider Emergency Medicine; PCP Family Medicine
DX: R60.0 Localized edema (principal); M25.562 Pain in left knee
CPT/HCPCS: 73562; 93971; 99283; 99284

== ENCOUNTER → 2023-12-31 18:43 | Outpatient (CLI) | payer MEDICARE, SELFPAY ==
--- NOTE | 2023-12-31 18:44 | DI.MRI.S_ITS ---
PROCEDURE: MR KNEE LT WO CON INDICATIONS: Left knee pain; gives out; Bakers cyst TECHNIQUE: Noncontrast sagittal PD fast spin echo and T2 fast spin echo with fat saturation, sagittal 3-D FLASH with fat saturation; coronal T1 spin echo and PD fast spin echo with fat saturation, and axial PD fast spin echo with fat saturation through the knee. COMPARISON: [facility], CR, XR KNEE LT 3V, 12/28/2023, 16:50. FINDINGS: Image quality: Excellent. Menisci: The medial and lateral menisci demonstrate normal morphology and internal signal. Low-grade partial-thickness tear involving posterior medial and lateral meniscal root ligaments are seen. Cruciate ligaments: The anterior cruciate ligament is mildly thickened. The posterior cruciate ligament is intact. Medial structures: The medial collateral ligament appears thickened with surrounding soft tissue edema near its femoral insertion. Visualized portions of the pes anserinus tendons appear normal. No abnormal bursal fluid. Lateral structures: The lateral collateral ligament, long and short heads of the biceps femoris tendon appear intact. The popliteus tendon appears normal. Iliotibial band appears normal. Anterior structures: The quadriceps and patellar tendons appear intact. Patellar alignment is normal. Low grade chondromalacia involving medial trochlear cartilage is seen. No edema in the infrapatellar fat pad. Bones and cartilage: [id number] tricompartmental osteoarthritis and chondromalacia is seen more notably involving medial and inferior aspect of patellofemoral compartment. Joint space: There is small to moderate amount of joint effusion, no gross loose bodies. There is a popliteal cyst measures 3.1 x 2.2 x 5.1 cm in size. Normal appearing synovial plicae are incidentally noted. IMPRESSION: 1. [id number] tricompartmental osteoarthritis and chondromalacia most notably involving inferior aspect of medial patellofemoral compartment. No fracture or dislocation. Moderate joint effusion and a popliteal cyst as above. No gross loose bodies. 2. No evidence of focal meniscal tear. Low-grade partial-thickness tear involving posterior medial and lateral meniscal root ligaments. 3. Mild degenerative changes involving anterior cruciate ligament. No ACL rupture. The PCL is intact. 4. Low-grade MCL sprain/partial-thickness tear. Dictated by: Zachary Cohn M.D. on 01/01/2024 at 9:39 Approved by: Zachary Cohn M.D. on 01/01/2024 at 9:43
== END ==
PROVIDERS: PCP Family Medicine; Referring Provider Physician Assistant; Visit Provider Physician Assistant
DX: S83.8X2A Sprain of other specified parts of left knee, initial encounter (principal); S83.412A Sprain of medial collateral ligament of left knee, initial encounter; M17.12 Unilateral primary osteoarthritis, left knee; M23.92 Unspecified internal derangement of left knee; M71.20 Synovial cyst of popliteal space [Baker], unspecified knee; M22.42 Chondromalacia patellae, left knee; M25.462 Effusion, left knee
CPT/HCPCS: 73721

== ENCOUNTER → 2024-03-04 10:51 | Outpatient (CLI) | payer MEDICARE, SELFPAY ==
[2024-03-04 12:25] LABS: Add Manual Diff / Slide Review NO; Basophils Absolute Auto 0 /uL (0-100); Basophils Percent Auto 0.1 % (0-2); Eosinophils Absolute Auto 0 /uL (0-450); Hematocrit 37.9 % (36-46); Hemoglobin 13.1 g/dL (12.0-16.0); Lymphocytes Absolute Auto 1300 /uL (1100-4500); Lymphocytes Percent Auto 13.5 % (25-40); Mean Corpuscular HGB Conc 34.6 % (30-36); Mean Corpuscular Hemoglobin 31.6 PG (26-34); Mean Corpuscular Volume 91.2 fL (80-100); Monocytes Absolute Auto 500 /uL (0-900); Monocytes Percent Auto 5.5 % (3-14); Neutrophils Absolute Auto 7600 /uL (1500-7000); Neutrophils Percent Auto 80.9 % (50-75); Platelet Count 272 X10^3/uL (150-400); Red Blood Cell Count 4.16 X10^6/uL (4.0-5.2); Red Cell Distribution Width 12.8 % (11.6-14.8); White Blood Cell Count 9.4 X10^3/uL (4.5-11.0)
[2024-03-04 12:57] LABS: Alanine Aminotransferase 21 IU/L (<35); Albumin 4.5 g/dL (3.5-5.0); Albumin Globulin Ratio 1.6 (1.0-2.8); Alkaline Phosphatase 74 U/L (38-126); Aspartate Aminotransferase 19 IU/L (14-36); BUN Creatinine Ratio 16.9 (6-22); Bilirubin Total 0.5 mg/dL (0.2-1.3); Blood Urea Nitrogen 14 mg/dL (7-17); Carbon Dioxide 26 mmol/L (22-32); Chloride 97 mmol/L (98-107); Cholesterol 225 mg/dL (140-199); Estimated Glomerular Filt Rate > 60 mL/min (>60); Globulin 2.9 g/dL (1.7-4.1); Glucose 84 mg/dL (80-110); HEMOLYSIS < 15 (0-50); Potassium 4.9 mmol/L (3.4-5.1); Sodium 131 mmol/L (137-145); Total Protein 7.4 g/dL (6.3-8.2); Triglycerides 61 mg/dL (35-150)
[2024-03-04 13:10] LABS: TSH w/ Reflex to FT4 1.52 uIU/mL (0.47-4.68)
[2024-03-04 13:17] LABS: HDL Cholesterol 118 mg/dL (40-60); LDL Cholesterol Calculated 95 mg/dL (<100)
[2024-03-04 14:17] LABS: Creatinine Urine Random 14.71 mg/dL
[2024-03-04 14:29] LABS: Microalbumin Urine Random < 0.6 mg/dL (0-1.6)
== END ==
PROVIDERS: PCP Family Medicine; Referring Provider Family Medicine; Visit Provider Family Medicine
DX: M23.92 Unspecified internal derangement of left knee (principal); I10 Essential (primary) hypertension; M17.12 Unilateral primary osteoarthritis, left knee; J45.909 Unspecified asthma, uncomplicated; M81.0 Age-related osteoporosis without current pathological fracture
CPT/HCPCS: 36415; 80053; 80061; 82043; 82570; 84443; 85025

== ENCOUNTER → 2024-07-04 13:25 | Outpatient (CLI) | payer MEDICARE, SELFPAY ==
--- NOTE | 2024-07-04 13:26 | DI.RAD.S_ITS ---
PROCEDURE: XR CERVICAL SPINE 2V OR 3V INDICATIONS: chronic neck pain TECHNIQUE: Three views (s) of the cervical spine were acquired. COMPARISON: None. FINDINGS: Cervical spine curvature and alignment: Normal. Bones: There are no osseous abnormalities. 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 Moderate C5-6 degenerative disc disease noted. There is moderate degenerative facet disease C2-3 through C7-T1. Soft tissues: No soft tissue swelling, calcification or mass. IMPRESSION: Degeneration Dictated by: Eladio Johnson M.D. on 07/05/2024 at 10:52 Approved by: Eladio Johnson M.D. on 07/05/2024 at 10:53
== END ==
PROVIDERS: PCP Family Medicine; Referring Provider Family Medicine; Visit Provider Family Medicine
DX: M50.322 Other cervical disc degeneration at C5-C6 level (principal); M47.812 Spondylosis without myelopathy or radiculopathy, cervical region; G89.29 Other chronic pain
CPT/HCPCS: 72040

== ENCOUNTER → 2024-09-27 16:34 | Outpatient (CLI) | payer MEDICARE, SELFPAY ==
--- NOTE | 2024-09-27 16:36 | DI.RAD.S_ITS ---
PROCEDURE: XR RIBS RT MIN 3V W CXR 1V INDICATIONS: f/u fall - bruising and pain back ribs TECHNIQUE: 2 views of the ribs were acquired, along with a single view chest. COMPARISON: None. FINDINGS: Heart, mediastinum and pulmonary vascular: Heart is normal in size and configuration. Moderate hiatal hernia noted. Pulmonary vascular is normal. Lungs: Clear Pleural spaces: Small right pleural effusion Bones and soft tissues: Normal . No rib fracture identified IMPRESSION: No rib fracture identified however a small posttraumatic right pleural effusion noted Moderate hiatal hernia Dictated by: Eladio Johnson M.D. on 09/28/2024 at 11:51 Approved by: Eladio Johnson M.D. on 09/28/2024 at 11:53
== END ==
PROVIDERS: PCP Family Medicine; Referring Provider Physician Assistant; Visit Provider Physician Assistant
DX: J90 Pleural effusion, not elsewhere classified (principal); K44.9 Diaphragmatic hernia without obstruction or gangrene; R07.81 Pleurodynia
CPT/HCPCS: 71101

== ENCOUNTER → 2024-09-30 12:55 | Outpatient (CLI) | payer MEDICARE, SELFPAY ==
--- NOTE | 2024-09-30 12:56 | DI.RAD.S_ITS ---
PROCEDURE: XR CHEST 2V INDICATIONS: f/u R effusion TECHNIQUE: 2 views of the chest were acquired. COMPARISON: [facility], CR, XR RIBS RT MIN 3V W CXR 1V, 09/27/2024, 16:37. [facility], CR, XR CHEST 1V, 04/17/2019, 10:32. FINDINGS: Surgical changes and devices: None. Lungs and pleura: Lungs are clear except for a small degree of linear atelectasis at each lower lung. No pleural effusions or pneumothorax. Mediastinum: Mediastinal contours are normal except for a moderately large air-fluid level related to a hiatal hernia behind the heart. Heart size is normal. Bones and chest wall: No suspicious bony abnormalities. Soft tissues appear unremarkable. IMPRESSION: Resolution of right-sided small pleural effusion, after trauma. Minimal linear atelectasis each lower lung. Moderately large hiatal hernia containing air-fluid level behind the heart. Dictated by: Julian Jacques M.D. on 09/30/2024 at 13:22 Approved by: Julian Jacques M.D. on 09/30/2024 at 13:24
== END ==
PROVIDERS: PCP Family Medicine; Referring Provider Physician Assistant; Visit Provider Physician Assistant
DX: J90 Pleural effusion, not elsewhere classified (principal); J98.11 Atelectasis; K44.9 Diaphragmatic hernia without obstruction or gangrene
CPT/HCPCS: 71046

== ENCOUNTER → 2025-02-20 10:23 | Outpatient (CLI) | payer MEDICARE, SELFPAY ==
[2025-02-20 10:42] LABS: Add Manual Diff / Slide Review NO; Hematocrit 35.7 % (36-46); Hemoglobin 12.2 g/dL (12.0-16.0); Lymphocytes Absolute Auto 1400 /uL (1100-4500); Mean Corpuscular HGB Conc 34.0 % (30-36); Mean Corpuscular Hemoglobin 29.2 PG (26-34); Mean Corpuscular Volume 85.9 fL (80-100); Platelet Count 247 X10^3/uL (150-400)
[2025-02-20 11:13] LABS: Alanine Aminotransferase 22 IU/L (<35); Albumin 4.5 g/dL (3.5-5.0); Albumin Globulin Ratio 1.7 (1.0-2.8); Alkaline Phosphatase 60 U/L (38-126); Blood Urea Nitrogen 18 mg/dL (7-17); Calcium 9.1 mg/dL (8.4-10.2); Carbon Dioxide 28 mmol/L (22-32); Chloride 98 mmol/L (98-107); Cholesterol 177 mg/dL (140-199); Estimated Glomerular Filt Rate > 60 mL/min (>60); Globulin 2.7 g/dL (1.7-4.1); Glucose 87 mg/dL (70-99); HDL Cholesterol 105 mg/dL (40-60); HEMOLYSIS < 15 (0-50); Potassium 4.5 mmol/L (3.4-5.1); Sodium 135 mmol/L (137-145); Total Protein 7.2 g/dL (6.3-8.2); Triglycerides 96 mg/dL (35-150)
[2025-02-20 11:46] LABS: TSH w/ Reflex to FT4 0.22 uIU/mL (0.47-4.68)
[2025-02-20 12:17] LABS: Free T4, Direct Thyroxine 1.13 ng/dL (0.78-2.19)
== END ==
PROVIDERS: PCP Family Medicine; Referring Provider Family Medicine; Visit Provider Family Medicine
DX: M50.30 Other cervical disc degeneration, unspecified cervical region (principal); I10 Essential (primary) hypertension; G89.29 Other chronic pain; F41.9 Anxiety disorder, unspecified
CPT/HCPCS: 36415; 80053; 80061; 82172; 84439; 84443; 85025

== ENCOUNTER → 2025-03-14 15:15 | Outpatient (CLI) | payer MEDICARE, SELFPAY ==
[2025-03-14 17:50] LABS: TSH w/ Reflex to FT4 1.89 uIU/mL (0.47-4.68)
== END ==
PROVIDERS: PCP Family Medicine; Referring Provider Family Medicine; Visit Provider Family Medicine
DX: Z00.00 Encounter for general adult medical examination without abnormal findings (principal); I10 Essential (primary) hypertension; R79.89 Other specified abnormal findings of blood chemistry; M17.12 Unilateral primary osteoarthritis, left knee; M23.92 Unspecified internal derangement of left knee; M81.0 Age-related osteoporosis without current pathological fracture; J45.40 Moderate persistent asthma, uncomplicated
CPT/HCPCS: 36415; 84443